=== PATIENT | female | born 1955 | race Caucasian/White ===

== ENCOUNTER 2022-07-13 00:15 | Day surgery (SDC) | payer BC, SELFPAY ==
--- NOTE | 2022-07-07 08:34 | PC.NURSE ---
Report to the Outpatient Waiting Room, entrance under the green pavilion located off [facility], at time _1145 on date _07/13/22 . OR Time: _1345 . - You and your visitor will be asked to self-screen and do not enter if you have any COVID symptoms. - Only one visitor and NO children visitors are allowed at this time. - The patient visitor is requested to leave or wait in car when not with patient due to restrictions. - A mask is required within the hospital. Patients may have clear liquids (water, carbonated beverages, clear teas, apple juice) until 3 hours prior to surgery with a maximum of 20 ounces. - No food from midnight until time of surgery - Infants may have breast milk until 4 hours before surgery, infant formula 6 hours prior to surgery. - Children will be allowed to drink immediately following surgery. If applicable, please bring a bottle or sippy cup to assist with drinking. Juice, water, soda, and popsicles are readily available. For infants on formula, please bring formula the day of surgery. Pacifiers are allowed. Take the following medications with a SIP of water the morning of surgery: ____SYNTHROID Medications to discontinue per physician ____ALL VITAMINS AND SUPPLEMENTS 3 DAYS PRE OP Date to take last dose___07/09/22 Please no make-up, nail latvian, hairspray, perfume, deodorant, or body powder the day of surgery. No jewelry (including any body piercings) or valuables the day of surgery, leave them at home. Please take a shower or bath the night before, or the morning of, surgery with an antibacterial soap. Wear comfortable, loose fitting clothing. Children are encouraged to wear pajamas. - Jewelry must be removed prior to entering the operating room. Rings and piercings that are not removed may be cut off. - The hospital will not accept responsibility for valuables. - Please leave all valuables, including medications, at home the day of surgery. If you are going home after surgery, a licensed pile driver operator must drive you home. - NO public transportation without another adult. - We recommend that an adult stay with you for 24 hours following discharge. - We also recommend that you do not drive, make important decision, drink alcoholic beverages, or take any drugs that were not prescribed by your health care provider for at least 24 hours after your discharge time. For Pediatric surgeries, we recommend two adults accompany the child home (only one inside the building at this time). Follow any additional instructions given to you from your surgeon. If you or anyone in your household have experienced Covid symptoms in the past week, please notify your surgeon or the nurse liaison at the phone number below for possible testing. Telephone instructions given to _PATIENT and asked if any additional questions and then verbalized understanding. Patient advised to call surgeon office or pre surgery nurse liaison [phone] if any additional questions.
[2022-07-07 08:44] VITALS: BMI 37.8
--- NOTE | 2022-07-13 08:30 | P.PNAN_ITS ---
Anes - Initial Pre Proc Eval Procedure: Operation Date: 07/13/22 13:30 Proposed Procedures p Hysteroscopy Dilation and Curettage - Savanna Marquez MD Date/Time: 07/13/22 08:30 Surgeon: Savanna Marquez MD Pre Op Diagnosis: post menopausal bleeding Patient Data Age: 66 Gender: F Height: 1.63 m Weight: 99.8 kg Allergies Allergy/AdvReac Type Severity Reaction Status Date / Time cephalexin [From Keflex] Allergy Rash Verified 07/07/22 08:21 codeine AdvReac Hallucinati Verified 07/13/22 07:27 ng Home Medications Medication Instructions Recorded Confirmed Type calcium 600 mg capsule 600 mg PO DAILY 07/07/22 07/07/22 History cholecalciferol (vitamin D3) 25 25 mcg PO DAILY 07/07/22 07/07/22 History mcg (1,000 unit) tablet levothyroxine 75 mcg tablet 75 mcg PO DAILY 07/07/22 07/07/22 History (Synthroid) misoprostol 200 mcg tablet 1,000 mcg PO DAILY 07/07/22 07/07/22 History multivitamin-ferrous 1 tablet PO DAILY 07/07/22 07/07/22 History fumarate-folic acid 18 mg-400 mcg tablet (Centrum Women) omeprazole 20 mg capsule,delayed 20 mg PO DAILY 07/07/22 07/07/22 History release Patient hx anesthesia problems: none Family hx anesthesia problems: none Results Review: All pre-operative results and documents have been reviewed as part of the pre- operative evaluation. [facility] Past Medical History Medical History (Updated 07/13/22 @ 08:56 by Savanna Marquez MD) Anxiety Chronic GERD Hepatitis C test positive 2020 Hyperlipidemia Hypothyroidism (normal spontaneous vaginal delivery) X1 Obesity Osteoarthritis Surgical History Surgical History (Updated 07/13/22 @ 08:55 by Savanna Marquez MD) History of X3 History of dilatation and curettage 1985 for miscarriage History of foot surgery Bone spurs removed from the right History of tonsillectomy Social History Social History Smoking status: Never smoker Living arrangements: with family Spiritual care concerns: No Anes - Eval Final PreProcedure Day of Procedure 07/13/22 08:30 Patient weight: obese Heart: regular rate and rhythm Lungs: clear to auscultation and normal air movement Airway: Mallampati scale class II Neurological: alert and oriented Last oral intake: >/= 8 hours ASA classification: III Emergent: no Anesthetic plan: proceed Anesthesia type and monitoring: general GIVS and LMA Results Review: All pre-operative results and documents have been reviewed as part of the pre- operative evaluation. Informed Consent: The patient's anesthetic plan and its attendant risks and benefits were discussed with the patient/family/POA. Questions were solicited and answers provided to the satisfaction of the patient/family/POA.
--- NOTE | 2022-07-13 08:51 | WPDHPUPDATE1 ---
History and Physical Update Update Date/Time: 07/13/22 08:51 History and Physical has been reviewed, including an updated exam of the patient. There are NO changes in the patient's condition. Risks, benefits, and alternatives have been discussed and questions answered. Patient agrees to proceed with procedure.
--- NOTE | 2022-07-13 08:51 | PM.HPGS ---
History of Present Illness History of Present Illness Consent: Risks, benefits, and alternatives have been discussed and questions answered. Patient agrees to proceed with procedure. Chief complaint: post menopausal bleeding Narrative: Graciela Andre is a 66 year old female with an episode of postmenopausal bleeding. Ultrasound was done and reveals the lining to be thickened at 1cm. In addition the uterus is very small at 5.4cm. Was recommended to further evaluate with D&C hysteroscopy. Risks of infection, bleeding, perforation, and possible pathology were reviewed. Patient voices understanding and agrees to proceed. Review of Systems Constitutional: Constitutional: Reports night sweats Musculoskeletal: Musculoskeletal: Reports arthralgias PMFSH Past Medical History Medical History (Updated 07/13/22 @ 08:56 by Savanna Marquez MD) Anxiety Chronic GERD Hepatitis C test positive 2020 Hyperlipidemia Hypothyroidism (normal spontaneous vaginal delivery) X1 Obesity Osteoarthritis Surgical History Surgical History (Updated 07/13/22 @ 08:55 by Savanna Marquez MD) History of X3 History of dilatation and curettage 1985 for miscarriage History of foot surgery Bone spurs removed from the right History of tonsillectomy Social History Social History Smoking status: Never smoker Living arrangements: with family Spiritual care concerns: No Meds Home Medications and Allergies Home Medications Medication Instructions Recorded Confirmed Type calcium 600 mg capsule 600 mg PO DAILY 07/07/22 07/07/22 History cholecalciferol (vitamin D3) 25 25 mcg PO DAILY 07/07/22 07/07/22 History mcg (1,000 unit) tablet levothyroxine 75 mcg tablet 75 mcg PO DAILY 07/07/22 07/07/22 History (Synthroid) misoprostol 200 mcg tablet 1,000 mcg PO DAILY 07/07/22 07/07/22 History multivitamin-ferrous 1 tablet PO DAILY 07/07/22 07/07/22 History fumarate-folic acid 18 mg-400 mcg tablet (Centrum Women) omeprazole 20 mg capsule,delayed 20 mg PO DAILY 07/07/22 07/07/22 History release Allergies Allergy/AdvReac Type Severity Reaction Status Date / Time cephalexin [From Keflex] Allergy Rash Verified 07/07/22 08:21 codeine AdvReac Hallucinati Verified 07/13/22 07:27 ng Exam Const: General: healthy appearing and alert Orientation/consciousness: patient oriented x3 GI: GI Palp: Yes Soft to palpation, No Tenderness to palpation present (GI) and No Palpable mass present : External Female Exam: normal external appearance Speculum Exam - Vagina: normal vaginal discharge, abnormal vaginal discharge (Old blood was present on exam in the office) and vagina atrophic Speculum Exam - Cervix: normal appearance of the cervix Bimanual exam- vagina & uterus: uterine size normal and consistency normal Bimanual Exam- Adnexa, other: normal adnexae and No adnexal tenderness Neuro: General: patient oriented x3 Assessment and Plan Assessment and plan (1) Post-menopausal bleeding: Code(s): N95.0 - Postmenopausal bleeding Status: Acute Assessment and Plan: With thickened endometrium plan to proceed with D&C hysteroscopy
[2022-07-13] MEDS: LACTATED RINGERS 1,000 ML 30 ML IV CONT ×2 (12:04→14:40)
[2022-07-13] MEDS: ACETAMINOPHEN 500 MG TABLET 1000 MG PO (12:10)
[2022-07-13 12:12] VITALS: BP 159/85; PULSE 73; RESP 16; TEMP 36.4; O2SAT 98
[2022-07-13] MEDS: LIDOCAINE HCL 1% PF 30 ML VIAL INFILTRATE (13:11)
--- NOTE | 2022-07-13 13:22 | P.OP_ITS ---
Procedure Note - Detailed Date of Procedure 07/13/22 Pre-op Diagnosis post menopausal bleeding Post-op Diagnosis Same Procedure Performed D&C hysteroscopy with MyoSure resection of polyps Surgeon Savanna Marquez MD Anesthesia MAC and Local Findings Uterus sounds to 7cm. There are several anterior polyps and the remainder of the endometrium appears atrophic Description of Procedure The patient was taken to the operating room and placed under anesthesia in the dorsal lithotomy position. She was prepped and draped in the usual sterile fashion. [place] speculum was placed in the vagina and the cervix grasped on the anterior lip with a tenaculum. The cervix is injected in each quadrant with 1% lidocaine. The os Finders are used to open the internal os. The uterus is then sounded to 7cm. The cervix is serially dilated with Hegar to an 8. The di agnostic hysteroscope was placed with the above-stated findings. The MyoSure device is opened and placed and the polyps resected under direct visualization. The MyoSure device is then removed and the medium sharp curette used to curette the endometrium until a good uterine cry was noted in all areas. Minimal material was obtained with this process consistent with the atrophic appearance. Vaginal instruments are removed the patient is awakened from anesthesia and taken down to recovery in stable condition. Sponge, needle, and instrument counts are correct per the OR staff. Estimated Blood Loss 5 Drains No Packing No Pathology Yes (Endometrial curettings and shavings) Complications No immediate complications Condition Stable Disposition PACU
[2022-07-13 13:24] VITALS: BP 131/76; PULSE 62; RESP 18; O2SAT 93
[2022-07-13] MEDS: fentaNYL CITRATE INJ (*CRX) 100 MCG/2 ML VIAL 25 MCG IV PUSH ×4 (13:43→14:19)
[2022-07-13 13:50] VITALS: BP 141/73; PULSE 58; RESP 18; O2SAT 97
[2022-07-13] MEDS: oxyCODONE HCL (*CRX) 5 MG TAB IR PO (13:58)
[2022-07-13 14:20] VITALS: BP 155/66; PULSE 54; RESP 16; O2SAT 98
[2022-07-13 14:35] VITALS: BP 138/64; PULSE 51; RESP 16; O2SAT 100
[2022-07-13] MEDS: ONDANSETRON INJ 4 MG/2 ML VIAL IV PUSH (14:35)
[2022-07-13 15:05] VITALS: BP 156/71; PULSE 58; RESP 16; O2SAT 100
== END 2022-07-13 15:17 | disposition home or self-care (01) ==
PROVIDERS: PCP Internal Medicine; Visit Provider Obstetrics & Gynecology Gynecology
PROC: 0U5B8ZZ Destruction of Endometrium, Via Natural or Artificial Opening Endoscopic (ICD-10-PCS; CPT 58563; principal; 2022-07-13 13:30)
DX: N95.0 Postmenopausal bleeding (principal); E03.9 Hypothyroidism, unspecified; F41.9 Anxiety disorder, unspecified; K21.9 Gastro-esophageal reflux disease without esophagitis; B19.20 Unspecified viral hepatitis C without hepatic coma; E78.5 Hyperlipidemia, unspecified; M19.90 Unspecified osteoarthritis, unspecified site; E66.9 Obesity, unspecified; Z68.37 Body mass index [BMI] 37.0-37.9, adult
CPT/HCPCS: 58558; 88305; A9270; J2405; J2704; J3010; J7030; J7120